=== PATIENT | male | born 1945 | race Caucasian/White ===

== ENCOUNTER 2023-09-12 02:23 | Inpatient (IN) | payer MEDICARE, SELFPAY ==
[2023-09-12] MEDS ORDERED: Albuterol 2.5 MG (0.5 mL) NEB ONE ×2 (02:49→04:03)
[2023-09-12 02:50] LABS: #Monocytes 0.9 thou/uL (0.11-0.59); %Basophils 0.1 % (0.0-1.0); %Eosinophils 0.1 % (0.0-10.0); %Lymphocytes 7.6 % (21.0-51.0); %Monocytes 4.6 % (0.0-10.0); %Neutrophils 86.9 % (42.0-75.0); Hematocrit 40.9 % (42.0-52.0); Hemoglobin 13.6 g/dL (14.0-18.0); Mean Corpuscular HGB CONC 33.3 g/dL (32.0-36.0); Mean Corpuscular Hemoglobin 28.9 pg (27.0-31.0); Mean Corpuscular Volume 86.8 fl (78.0-98.0); Mean Platelet Volume 8.8 fL (7.4-10.4); Platelet Count 304 10x3/uL (130-400); RBC Distribution Width 12.4 % (11.5-14.5); Red Blood Cell (RBC) Count 4.71 mill/uL (4.70-6.10); White Blood Cell (WBC) Count 18.4 10x3/uL (4.8-10.8)
[2023-09-12] MEDS ORDERED: methylPREDNISolone Sod Succ/PF 125 MG/2 ML VIAL ONE (02:50)
[2023-09-12] MEDS ORDERED: Ipratropium/Albuterol 3 ML NEB ONE ×2 (02:50→04:04)
[2023-09-12 02:51] LABS: Actual Bicarbonate (HCO3v) 26.4 mEq/L (22-28); Analyzer IN Cardio ER; Calcium, Ionized (venous) 1.05 mmol/L (1.16-1.32); Chloride (VBG) 93 mmol/L (98-106); Hematocrit-VBG 41 % (42.0-52.0); Hemoglobin (Hb) 14.1 g/dL (12.6-17.4); Potassium (VBG) 3.07 mmol/L (3.70-5.30); Sodium 135 mmol/L (133-146); pH (venous) 7.523 (7.32-7.43)
[2023-09-12] MEDS ORDERED: Magnesium 2 GM/50 ML BAG (IN WATER) ONE (02:52)
[2023-09-12 03:59] LABS: Troponin I 0.013 ng/mL (< 0.028)
[2023-09-12] MEDS ORDERED: Albuterol 2.5 MG (3 mL) NEB ONE (04:03)
[2023-09-12 04:25] LABS: ALT (SGPT) 21 U/L (8-55); AST (SGOT) 19 U/L (5-34); Albumin 3.8 g/dL (3.4-4.8); Alkaline Phosphatase 69 U/L (40-110); Anion Gap 15 mmol/L (10-20); BUN (Urea Nitrogen) 18 mg/dL (8.4-25.7); Calc. Creatinine Clearance 0 mL/min (70-130); Calcium 8.9 mg/dL (7.8-10.44); Carbon Dioxide 27 mmol/L (23-31); Chloride 94 mmol/L (98-107); Estimated GFR 92; Globulin 2.9 g/dL (2.4-3.5); Glucose 144 mg/dL (83-110); Protein, Total 6.7 g/dL (5.8-8.1); Sodium 133 mmol/L (136-145)
[2023-09-12] MEDS ORDERED: Ipratropium Bromide 2.5 ml Neb ONE (04:25)
[2023-09-12] MEDS ORDERED: Morphine 2 MG/ML VIAL ONE (05:18)
[2023-09-12] MEDS ORDERED: Ondansetron PF 4 MG/2 ML Vial IVP PRN (07:51)
[2023-09-12] MEDS ORDERED: Ondansetron ODT 4 MG TAB PO PRN (07:51)
[2023-09-12] MEDS ORDERED: traMADol HCl 50 MG TAB PO PRN (07:51)
[2023-09-12] MEDS ORDERED: Acetaminophen 650 MG Suppository PR PRN (07:51)
[2023-09-12] MEDS ORDERED: Amoxicillin/Potassium Clav 875 MG TAB ONE (08:30)
[2023-09-12] MEDS ORDERED: Enoxaparin 40 MG (0.4 mL) SYRINGE ONE (08:30)
[2023-09-12] MEDS ORDERED: Potassium Chloride 20 MEQ TAB ONE (08:30)
[2023-09-12] MEDS ORDERED: Famotidine 20 MG TAB ONE (08:30)
[2023-09-12] MEDS ORDERED: Amoxicillin/Potassium Clav 875 MG TAB PO SCH (09:00)
[2023-09-12] MEDS ORDERED: Verapamil 180 MG ER.TAB PO SCH (09:00)
[2023-09-12 09:28] LABS: Troponin I Less than 0.010 ng/mL (< 0.028)
[2023-09-12] MEDS: Potassium Chloride 20 MEQ TAB PO SCH (09:31)
[2023-09-12] MEDS: Famotidine 20 MG TAB PO SCH (09:31)
[2023-09-12] MEDS: Enoxaparin 40 MG (0.4 mL) SYRINGE SC SCH (09:34)
[2023-09-12] MEDS ORDERED: cefTRIAXone (ROCEPHIN) 1 GM VIAL ONE (09:36)
[2023-09-12] MEDS ORDERED: Azithromycin 500 MG VIAL ONE (09:36)
[2023-09-12] MEDS ORDERED: Sodium Chloride 0.9% 100 ML ONE (09:36)
[2023-09-12] MEDS: cefTRIAXone\\ROCEPHIN 1 GM in Sodium Chloride 0.9% 100 ML IVPB SCH (09:41)
[2023-09-12] MEDS: Verapamil 240 MG SR.TAB PO SCH (10:00)
[2023-09-12] MEDS: Azithromycin 500 MG in Sodium Chloride 0.9% 250 ML 250 ML IVPB SCH (10:00)
[2023-09-12 11:24] LABS: SARS-CoV-2 NAA Rapid Test Not Detected (NotDetected)
[2023-09-12 13:51] LABS: Anion Gap 14 mmol/L (10-20); BUN (Urea Nitrogen) 19 mg/dL (8.4-25.7); Calc. Creatinine Clearance 0 mL/min (70-130); Calcium 8.7 mg/dL (7.8-10.44); Carbon Dioxide 26 mmol/L (23-31); Chloride 91 mmol/L (98-107); Estimated GFR 86; Glucose 286 mg/dL (83-110); Potassium 3.1 mmol/L (3.5-5.1); Sodium 128 mmol/L (136-145)
[2023-09-12 13:57] LABS: Troponin I Less than 0.010 ng/mL (< 0.028)
[2023-09-12] MEDS ORDERED: Iopamidol-370 76% 500 ML MDV (1 ML CHARGE) ONE (15:36)
[2023-09-12 17:11] VITALS: BMI 33.1
[2023-09-12] MEDS: Potassium Chloride 20 MEQ in Premix 1 BAG IVPB SCH (18:05)
[2023-09-12] MEDS: Benzonatate 100 MG CAP PO SCH ×2 (18:11→20:11)
[2023-09-12] MEDS: Sodium Chloride 0.9% 1,000 ML IV SCH (18:40)
[2023-09-12] MEDS: Ipratropium/Albuterol 3 ML NEB NEB PRN (18:45)
[2023-09-12] MEDS: traZODone HCl 50 MG TAB PO SCH (20:11)
[2023-09-12] MEDS: Atorvastatin Calcium 20 MG TAB PO SCH (20:11)
[2023-09-13 06:13] LABS: Hematocrit 36.8 % (42.0-52.0); Hemoglobin 12.1 g/dL (14.0-18.0); Manual Diff?? YES; Mean Corpuscular HGB CONC 32.9 g/dL (32.0-36.0); Mean Corpuscular Hemoglobin 28.8 pg (27.0-31.0); Mean Corpuscular Volume 87.6 fl (78.0-98.0); Mean Platelet Volume 9.2 fL (7.4-10.4); Platelet Count 296 10x3/uL (130-400); RBC Distribution Width 13.2 % (11.5-14.5); White Blood Cell (WBC) Count 26.6 10x3/uL (4.8-10.8)
[2023-09-13 06:21] LABS: Delete Auto Diff?? YES
[2023-09-13 06:29] LABS: Hemoglobin A1c 6.3 % (4.0-6.0)
[2023-09-13 06:32] LABS: Anion Gap 10 mmol/L (10-20); BUN (Urea Nitrogen) 15 mg/dL (8.4-25.7); Calc. Creatinine Clearance 116 mL/min (70-130); Calcium 8.6 mg/dL (7.8-10.44); Carbon Dioxide 29 mmol/L (23-31); Chloride 101 mmol/L (98-107); Estimated GFR 96; Glucose 162 mg/dL (83-110); Potassium 4.2 mmol/L (3.5-5.1); Sodium 136 mmol/L (136-145)
[2023-09-13 06:46] LABS: Band 1 % (5-11); CellaVision Operator ID lab.sh2; Lymphocytes 14 % (21-51); Monocytes 4 % (0-10); Neutrophil 81 % (42-75); Platelet Adequacy Comment Platelets Normal; RBC Morphology Within Normal Limits; Total Cell Count 101
[2023-09-13] MEDS: Loperamide HCl 2 MG CAP PO PRN (17:24)
[2023-09-14] MEDS: Acetaminophen 325 MG TAB PO PRN (04:35)
[2023-09-14 05:16] LABS: #Monocytes 1.4 thou/uL (0.11-0.59); #Neutrophils 13.5 thou/uL (1.40-6.50); %Basophils 0.2 % (0.0-1.0); %Eosinophils 0.1 % (0.0-10.0); %Lymphocytes 24.3 % (21.0-51.0); %Monocytes 6.9 % (0.0-10.0); %Neutrophils 67.8 % (42.0-75.0); Hematocrit 35.3 % (42.0-52.0); Hemoglobin 11.5 g/dL (14.0-18.0); Mean Corpuscular HGB CONC 32.6 g/dL (32.0-36.0); Mean Corpuscular Hemoglobin 29.2 pg (27.0-31.0); Mean Corpuscular Volume 89.6 fl (78.0-98.0); Mean Platelet Volume 9.3 fL (7.4-10.4); Platelet Count 289 10x3/uL (130-400); RBC Distribution Width 13.2 % (11.5-14.5); Red Blood Cell (RBC) Count 3.94 mill/uL (4.70-6.10); White Blood Cell (WBC) Count 19.9 10x3/uL (4.8-10.8)
[2023-09-14 05:43] LABS: Anion Gap 11 mmol/L (10-20); BUN (Urea Nitrogen) 17 mg/dL (8.4-25.7); Calc. Creatinine Clearance 116 mL/min (70-130); Calcium 8.3 mg/dL (7.8-10.44); Carbon Dioxide 28 mmol/L (23-31); Chloride 103 mmol/L (98-107); Estimated GFR 96; Glucose 111 mg/dL (83-110); Potassium 3.8 mmol/L (3.5-5.1); Sodium 138 mmol/L (136-145)
[2023-09-14] MEDS: Verapamil 240 MG SR.TAB PO SCH (08:24)
[2023-09-14 12:09] VITALS: BP 163/72; TEMP 98.1
== END 2023-09-14 12:29 | disposition home or self-care (01) | DRG 194 ==
LOC: ERS 02:23 → SUATTDRO 02:23 → ERHOLD 07:35 → 2NO 16:48
PROVIDERS: ADMIT Family Medicine; ATTEND Hospitalist
DX: J18.9 Pneumonia, unspecified organism (principal); E87.3 Alkalosis; E87.6 Hypokalemia; E78.5 Hyperlipidemia, unspecified; I11.9 Hypertensive heart disease without heart failure; Z87.891 Personal history of nicotine dependence; Z11.52 Encounter for screening for COVID-19; Z79.899 Other long term (current) drug therapy
CPT/HCPCS: 36415; 71045; 71260; 74018; 80048; 80053; 82805; 83036; 83880; 84145; 84443; 84484; 85025; 93005; 93306; 94640; 94660; 94760; 96374; 96375; J0456; J0696; J1650; J2272; J2930; J3475; J3480; J3490; J7050; J7611; J7620; Q9967